=== PATIENT | female | born 1960 | race Caucasian/White ===

== ENCOUNTER → 2018-04-25 | Outpatient (CLI) | payer OTHER | LOC: FIMAGING 08:12 | PROVIDERS: ATTEND Internal Medicine | DX: Z12.31 Encounter for screening mammogram for malignant neoplasm of breast (principal) ==

== ENCOUNTER 2018-07-17 13:50 | Emergency (ER) | payer OTHER ==
--- NOTE | 2018-07-17 15:27 | EDPHY ---
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 Full flexion and extension, 2 point discrimination intact, neurovascular exam without abnormality, no clinical indication of deep vascular tendon injury. Tetanus up-to-date. Wound was anesthetized, cleaned and repaired as per chart notes. Wound care discussed, sinus symptoms of infection reviewed, warning signs return to ED outlined discharge DIFFERENTIAL DIAGNOSIS: includes but not limited to laceration of tendon or vascular structure, underlying fracture, laceration with retained FB ED PROCECURES: Laceration Repair Verbal consent obtained by patient. Risks discussed, including but not limited to infection, pain, retained foreign body, need for additional repair, poor cosmetic result, tendon damage, nerve damage, poor wound healing, vascular damage. Alternatives to repair discussed. [place] protocol used to establish correct patient, procedure, equipment, marketing support coordinator, and site. Anesthesia obtained by nerve block at left 3rd MCP joint. Anesthetized with 0.5% bupivacaine without epinephrine. Laceration location left 3rd finger, volar surface, length 1.5 cm, depth 2 mm, Repair type simple. Patient was prepped and draped in usual sterile fashion. Hemostasis achieved with direct pressure. Wound explored through full range of motion and entire depth of wound probed and visualized with gloved finger. No suspicion for nerve damage, tendon damage, underlying fracture, vascular damage, foreign body, or contamination. Area was cleansed with Shur-Clens and irrigated with sterile saline as per protocol. No foreign body or material removed. Repair method 5 0 Prolene simple interrupted sutures. Seven sutures placed. Well aligned, closely approximated. wound was dressed with bacitracin and Band- Aid. Patient tolerated well with no immediate complications. Wound care: Clean and dry x 24 hours, gently clean with soap and water, cover with topical antibiotic ointment/bandage. 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 Patient is right-hand dominant. She has full range of motion of the digit with no reported sensory loss. Tetanus reported as up-to-date. No other injuries PAST MEDICAL HISTORY: History of TIA with residual vision loss Pertinent Past Surgical History: None reported Social History: Smoker REVIEW OF SYSTEMS: All other systems negative Constitutional: No fever, no chills Musculoskeletal: No deformity, no joint pain Skin: Laceration to left 3rd digit Neurological: No sensory loss or weakness, 2 point discrimination intact. PHYSICAL EXAM: General Appearance: Alert, oriented, appropriate for age, cooperative, NAD, well hydrated, non-toxic appearing, VSS, no hypoxia. Neurological: Alert and oriented x 3 Skin: Macerated laceration to left 3rd digit, volar surface, proximal to PIP joint. Full flexion and extension. Strength 5/5. Distal 2 point discrimination intact Musculoskeletal: Full range of motion, see above MEDICAL DECISION MAKING: Patient was seen independently. Secondary supervising physician at time of evaluation was Dr. Yadav. Diagnosis: Left 2nd finger laceration . New, requires workup Summary: See assessment and plan for summary of ED visit Patient Progress improved. Smoking Status: Heavy smoker Constitutional: Initial Vital Signs Temperature (C) 36.5 C 07/17/18 13:58 Heart Rate 91 07/17/18 13:58 Respiratory Rate 16 07/17/18 13:58 Blood Pressure 125/63 H 07/17/18 13:58 O2 Sat (%) 95 07/17/18 13:58 O2 Delivery Mode Room Air Allergies/Adverse Reactions: No Known Allergies Allergy (Verified 07/17/18 13:57) Home Medications: Medication Instructions Recorded Loratadine [Claritin] 10/14/15 MDM/Departure - Depart Disposition: Home, Routine, Self-Care Clinical Impression: Finger laceration Qualifiers: Encounter type: initial encounter Finger: index finger Damage to nail status: without damage Foreign body presence: without foreign body Laterality: left Qualified Code(s): S61.211A - Laceration without foreign body of left index finger without damage to nail, initial encounter Condition: Good Instructions: Finger Laceration (ED) Additional Instructions: Please have sutures/abdiel removed in 10 Days. You can return to the emergency department or your primary care for suture/staple removal. Avoid submerging sutures/abdiel underwater for prolonged period of time until removed. Keep wound clean and dry, cover with antibiotic ointment and Band-Aid. Return to emergency department for redness, swelling, discharge, warmth to the skin, or any other concerns for infection. Referrals: Shreyas Medrano MD [Primary Care Provider] - As per Instructions
[2018-07-17 15:55] VITALS: BP 135/74
== END 2018-07-17 15:55 | disposition home or self-care (01) ==
PROC: 0HQGXZZ Repair Left Hand Skin, External Approach (ICD-10-PCS; principal; 2018-07-17)
DX: S61.213A Laceration without foreign body of left middle finger without damage to nail, initial encounter (principal); S61.211A Laceration without foreign body of left index finger without damage to nail, initial encounter; W27.1XXA Contact with garden tool, initial encounter; Y92.89 Other specified places as the place of occurrence of the external cause; Y93.H2 Activity, gardening and landscaping; Y99.0 Civilian activity done for income or pay